=== PATIENT | female | born 1950 | race Caucasian/White ===

== ENCOUNTER 2022-02-16 15:09 | Emergency (ER) | payer MEDICARE ==
[2022-02-16 16:46] LABS: HEMOGLOBIN 14.6 gm/dl (12.3-15.3); RED BLOOD COUNT 4.91 M/UL (4.00-5.10)
[2022-02-16 17:08] LABS: BUN/CREATININE RATIO 15 (0-10)
== END 2022-02-16 19:05 | disposition home or self-care (01) ==
LOC: ER1 15:09
PROVIDERS: Student in an Organized Health Care Education/Training Program
DX: T85.09XA Other mechanical complication of ventricular intracranial (communicating) shunt, initial encounter (principal); I10 Essential (primary) hypertension; Z88.5 Allergy status to narcotic agent; X58.XXXA Exposure to other specified factors, initial encounter
CPT/HCPCS: 70250; 70450; 71045; 72040; 74018; 80048; 85025; 99284